=== PATIENT | male | born 1940 | race Caucasian/White ===

== ENCOUNTER 2020-03-22 09:23 | Observation (INO) | payer OTHER ==
[2020-03-17 12:10] LABS: BASOPHILS % 0.5 % (0.0-1.0); EOSINOPHILS # (AUTO) 0.1 (0.0-0.4); EOSINOPHILS % 1.6 % (0.0-6.0); HEMATOCRIT 50.8 % (38.2-49.6); HEMOGLOBIN 16.4 g/dL (14.0-18.0); LYMPHOCYTES # (AUTO) 1.4 (1.0-3.2); LYMPHOCYTES % 23.5 % (18.0-39.1); MEAN CORPUSCULAR HEMOGLOBIN 28.7 pg (28-32); MEAN CORPUSCULAR HGB CONC 32.3 g/dL (31-35); MONOCYTES # (AUTO) 0.6 (0.2-0.8); MONOCYTES % 11.1 % (4.4-11.3); NEUTROPHILS # (AUTO) 3.7 (2.1-6.9); PLATELET COUNT 184 x10e3/uL (140-360); RED BLOOD COUNT 5.71 x10e6/uL (4.3-5.7); RED CELL DISTRIBUTION WIDTH 13.6 % (11.7-14.4)
[2020-03-17 12:30] LABS: ANION GAP 14.4 mmol/L (8-16); BLOOD UREA NITROGEN 12 mg/dL (7-26); BUN/CREATININE RATIO 14 (6-25); CALCIUM 9.6 mg/dL (8.4-10.2); CARBON DIOXIDE 27 mmol/L (22-29); CHLORIDE 104 mmol/L (98-107); CREATININE, SERUM 0.88 mg/dL (0.72-1.25); EST GLOMERULAR FILTRATION RATE > 60 ML/MIN (60-); GLUCOSE 134 mg/dL (74-118); POTASSIUM 4.4 mmol/L (3.5-5.1); SODIUM 141 mmol/L (136-145)
--- NOTE | 2020-03-17 12:59 | Diagnostic Imaging Report ---
Exam: CHEST 2 VIEWS Date: 03/17/2020 12:53 PM INDICATION: ^[id number] ^1214 ^PRE-OP Comparison: None FINDINGS: Lines/Tubes:None Lungs:There are multifocal bilateral upper lobe predominant peripheral ill-defined airspace opacities. Negative for focal lobar consolidation. Pleura:No pleural effusion. No pneumothorax. Heart/Mediastinum:The cardiomediastinal silhouette is normal in size and contour. Trachea projects midline. Bones/Soft Tissues: No acute osseous abnormality. Mild to moderate multilevel degenerative changes of the spine are noted. Upper abdomen: Unremarkable. IMPRESSION: Ill-defined peripheral predominant opacities in the bilateral upper lobes and perihilar regions. Findings are concerning for multifocal infection, possibly atypical versus less likely inhalational disease. Correlate with patient's symptoms. No prior imaging available for comparison. Signed by: Jamison Gutiérrez MD on 03/17/2020 12:56 PM
[~2020-03-22] VITALS: Ht 172.7 cm; Wt 74.4 kg
[~2020-03-22 09:23] MED LIST: ASPIRIN EC81 MG PO; ATACAND16 MG PO; CLOPIDOGREL75 MG PO; CRESTOR20 MG PO; FARXIGA10 MG PO; FENOFIBRATE PO; INVOKANA PO; ISOSORBIDE MONO30 MG PO; ISOSORBIDE PO; LYRICA50 MG; METFORMIN HCL850 MG PO; METOPROLOL SUCC25 MG PO; METROPROLOL PO; NAPROXEN PO; NORCO 7.5-3251 EACH PO; PRILOSEC PO; ROPIVACAINE 246.25 MG, EPINEPHRINE HCL 1:1000 1ML 0.5 MG, CLONIDINE HCL 0.08 MG, KETORO... INJ ONE; ZETIA10 MG PO; [UNRECOGNIZED DRUG - OTHER] PO
[2020-03-22] MEDS ORDERED: CELECOXIB 200 MG CAP ONE (10:09)
[2020-03-22] MEDS ORDERED: GABAPENTIN 300 MG CAP ONE (10:09)
[2020-03-22] MEDS ORDERED: DEXAMETHASONE SOD PHOS 10 MG/1 ML VIAL ONE (10:09)
[2020-03-22] MEDS ORDERED: CEFAZOLIN SOD 1 GM/NS 50ML 100 ML IV ONE (10:10)
[2020-03-22] MEDS ORDERED: TRANEXAMIC ACID 1,000 MG/10 ML ML ONE (10:26)
[2020-03-22] MEDS ORDERED: SODIUM CHLORIDE 0.9% 500ML 500 ML ONE (10:26)
[2020-03-22] MEDS ORDERED: BUPIVACAINE 7.5MG/ML /DEXTROSE 82.5MG/ML 2 ML AMP INJ ONE (10:28)
[2020-03-22] MEDS ORDERED: VANCOMYCIN HCL 1,000 MG ONE (11:07)
[2020-03-22] MEDS ORDERED: DOCUSATE SODIUM 100 MG CAP PO PRN (12:30)
[2020-03-22] MEDS ORDERED: HYDROCODONE/APAP 5MG-325MG TAB PO PRN (12:30)
[2020-03-22] MEDS ORDERED: ACETAMINOPHEN 650 MG SUPP PR PRN (12:30)
[2020-03-22] MEDS ORDERED: ONDANSETRON HCL INJ 2MG/ML 2ML 2 MG/ML VIAL IV PRN (12:30)
[2020-03-22] MEDS ORDERED: DIPHENHYDRAMINE HCL INJ 50 MG/ML VIAL IV PRN (12:30)
[2020-03-22] MEDS ORDERED: KETOROLAC TROMETHAMINE 30 MG/ML VIAL IV PRN (12:30)
--- OUTSIDE RECORDS SUMMARY | 2020-03-22 13:01 | XMS REPORT | Clinical Summary ---
Author Author TRISTAN Desmos [facility] [facility] Address Unknown Phone Unavailable Care Team Providers Care General I Farmworker Name Role Phone Jesus Lee MD PCP Allergies Comments Active Allergy Reactions Severity Noted Date hallucination Morphine 02/25/2013 Medications End Date Status Medication Sig Dispensed Refills Start Date Active clopidogrel (PLAVIX) 75 Take 75 mg by 0 mg tablet mouth daily. Active aspirin 81 MG EC tablet Take 81 mg by 0 mouth daily. Active metoprolol (TOPROL-XL) 25 Take 25 mg by 0 MG 24 hr tablet mouth daily. Active candesartan (ATACAND) 16 Take 16 mg by 0 MG tablet mouth daily. Active isosorbide mononitrate Take 30 mg by 0 (IMDUR) 30 MG 24 hr mouth daily. tablet Active pregabalin (LYRICA) 50 MG Take 100 mg 0 capsule by mouth daily. Active traMADol (ULTRAM-ER) 300 Take 300 mg 0 MG 24 hr tablet by mouth daily. Active dutasteride-tamsulosin Take by 0 (USHA) 0.5-0.4 mg CM24 mouth. Active sitagliptin-metformin Take by 0 (JANUMET XR) 50-1,000 mg mouth. TM24 Active rosuvastatin (CRESTOR) 20 Take 20 mg by 0 MG tablet mouth daily. Active Problems Problem Noted Date Abnormal nuclear cardiac imaging test 02/24/2013 Overview: Mild ischemia anterolateral. Moderate i nferior perfusion defect with reversibility. Positive ETT. Family History Medical History Relation Name Comments Stroke Father Stroke Sister Relation Name Status Comments Father Other Sister Other Social History Date Tobacco Use Types Packs/Day Years Used Former Smoker Comments: Quit since 20 years ago Drinks/Week oz/Week Comments Alcohol Use No Sex Assigned at Date Recorded Not on file Last Filed Vital Signs Not on file Plan of Treatment Health Maintenance Due Date Last Done Comments PNEUMOCOCCAL 65+ YRS (1 2007 of 1 - [id number] PCV13) INFLUENZA VACCINE (#1) 2020 Results Not on fileafter 03/22/2019 Insurance Type Payer Benefit Subscriber ID Effective Phone Address Plan / Dates Group [employer] - [employer]GD [facility] [id number] 2017-P CIGNA HMO resent [id number] Advance Directives For more information, please contact: [phone] Date Inactivated Comments Code Status Date Activated 02/25/2013 9:54 PM All possible means of suppor t including;cardiac massage, mechanical ventilation, and defibrillation will be used to support life. Code ONE 02/25/2013 8:34 AM
--- OUTSIDE RECORDS SUMMARY | 2020-03-22 13:01 | XMS REPORT | Continuity of Care Document ---
Author Author [facility] t Organization [facility] Address [address] [place] [address] Phone Unavailable Care Team Providers Care Technology Assistant Name Role Phone Augusto Lee MD PCP ENOC ANDREWS Unavailable Problems Condition Name Condition Details Condition Category Status Onset Date Resolution Date Last Treatment Date Treating Clinician Comments Source Abnormal nuclear cardiac imaging test Abnormal nuclear cardi ac imaging test Disease Active 2013-02-24 00:00:00 Overv iew: Mild ischemia anterolateral. Moderate inferior perfusion defect with reversibility. Positive ETT. [facility] Allergies, Adverse Reactions, Alerts Allergy Name Allergy Type Status Severity Reaction(s) Onset Date Inacti ve Date Treating Clinician Comments Source Morphine Propensity to adverse reactions Active 2013-02 00:00:[address] [facility] Family History Family Member Diagnosis Comments Start Date Stop Date Source Natural father Stroke [facility] Natural sister Stroke [facility] Social History Social Habit Start Date Stop Date Quantity Comments Source Sex Assigned At [facility] Alcohol intake 2013-02-26 00:00:00 2013-02-26 00:00:00 Current non-drinker of alcohol (finding) [facility] Tobacco Comment 2013-02-24 00:00:00 2013-02-24 00:00:00 Quit since [address] [facility] Smoking Status Start Date Stop Date Source Former smoker 2013-02-26 00:00:00 2013-02-26 00:00:00 [facility] Medications Ordered Medication Name Filled Medication Name Start Date Stop Da te Current Medication? Ordering Clinician Indication Dosage Frequency Signature (SIG) Comments Components Source clopidogrel (PLAVIX) 75 mg tablet 2013-02-25 19:54:05 Yes 75mg QD Take 75 mg by mouth daily. [facility] aspirin 81 MG EC tablet 2013-02-25 19:54:05 Yes 81mg QD Take 81 mg by mouth daily. [facility] metoprolol (TOPROL-XL) 25 MG 24 hr tablet 2013-02-25 19:54:05 Yes 25mg QD Take 25 mg by mouth daily. [facility] candesartan (ATACAND) 16 MG tablet 2013-02-25 19:54:05 Yes 16mg QD Take 16 mg by mouth daily. [facility] isosorbide mononitrate (IMDUR) 30 MG 24 hr tablet 2013-02-25 19:54:05 Yes 30mg QD Take 30 mg by mouth daily. [facility] pregabalin (LYRICA) 50 MG capsule 2013-02-25 19:54:05 Yes 100mg QD Take 100 mg by mouth daily. [facility] traMADol (ULTRAM-ER) 300 MG 24 hr tablet 2013-02-25 19:54:05 Yes 300mg QD Take 300 mg by mouth daily. [facility] dutasteride-tamsulosin (USHA) 0.5-0.4 mg CM24 2013-02-25 19:54: 05 Yes Take by mouth. [facility] sitagliptin-metformin (JANUMET XR) 50-1,000 mg TM24 02-25 19:54:05 Yes Take by mouth. [facility] rosuvastatin (CRESTOR) 20 MG tablet 2013-02-25 19:54:05 Yes 20mg QD Take 20 mg by mouth daily. [facility] Procedures This patient has no known procedures. Plan of Care Planned Activity Planned Date Details Comments Source Future Scheduled Test 2020-02-09 00:00:00 INFLUENZA VACCINE (#1) [code = INFLUENZA VACCINE (#1)] [facility] Future Scheduled Test 2007 00:00:00 PNEUMOCOCCAL 65+ Y RS (1 of 1 - [id number] PCV13) [code = PNEUMOCOCCAL 65+ YRS (1 of 1 - [id number]_[id number] PCV13)] [facility] Results Test Description Test Time Test Comments Results Result Comments Source CHEST 2 VIEWS 2020-03-17 12:53:00 [place] [address] Patient Name: ROSE MARIE BUENO MR #: [id number] : 1940 Age/Sex: 79/M Req #: [id number] Adm Physician: Ordered by: ENOC ANDREWS MD Report #: [id number] Location: OR Room/Bed: Procedure: [id number] DX/CHEST 2 VIEWS Exam Date: 03/17/20 Exam Time: 1214 REPORT STATUS: Signed Exam: CHEST 2 VIEWS Date: 03/17/2020 12:53 PM INDICATION: [id number] 1214 PRE-OP Comparison: None FINDINGS: Lines/Tubes:None Lungs:There are multifocal bilateral upper lobe predominant peripheral ill-defined airspace opacities. Negative for focal lobar consolidation. Pleura:No pleural effusion. No pneumothorax. Heart/Mediastinum:The cardiomediastinal silhouette is normal in size and contour. Trachea projects midline. Bones/Soft Tissues: No acute osseous abnormality. Mild to moderate multilevel degenerative changes of the spine are noted. Upper abdomen: Unremarkable. IMPRESSION: Ill-defined peripheral predominant opacities in the bilateral upper lobes and perihilar regions. Findings are concerning for multifocal infection, possibly atypical versus less likely inhalational disease. Correlate with patient's symptoms. No prior imaging available for comparison. Signed by: Naomi Gutiérrez MD on 03/17/2020 12:56 PM Dictated By: NAOMI GUTIÉRREZ MD 1256 Transcribed By: ALFRED on 03/17/20 1256 COPY TO: ENOC ANDREWS MD RAD, CHEST, 2 VIEWS 2017-07-22 11:38:00 Reason for Exam:->[id number] 0 FINAL REPORT TECHNIQUE: Frontal and lateral views of the chest. INDICATION: 77-year-old man with exposure to asbestos. COMPARISON: Chest CT 01/04/2014. FINDINGS: LINES/TUBES: None. LUNGS/PLEURA: No pleural effusion or pneumothorax. Bilateral calcified pleural plaques, which may mask pathology in the lungs. No consolidations or pulmonary edema. HEART AND MEDIASTINUM: The cardiomediastinal silhouette is within normal limits. Atherosclerotic calcifications in the thoracic aorta. SOFT TISSUES AND BONES: Degenerative changes of the visualized spine. Soft tissues are unremarkable. IMPRESSION:Bilateral calcified pleural plaques, which may mask pathology in the lungs. Otherwise, no definite acute cardiopulmonary abnormalities. RECOMMENDATION:Chest CT may be obtained for further evaluation. Signed: Brittni Murillo MDReport Verified Date/Time: 07/22/2017 11:38:51 Reading Location: [address] Radiology Reading Room
--- NOTE | 2020-03-22 13:38 | Diagnostic Imaging Report ---
Pelvis, one view INDICATION: ^POST OP ^[id number] ^1258 ^IN PACU Comparison: None available. Discussion: Postoperative changes from left hip arthroplasty are noted with overlying subcutaneous emphysema. Anatomic alignment of the left hip prosthesis is noted. Right hip joint space is well maintained. Pubic symphysis is not widened. IMPRESSION: Anatomic postsurgical alignment of the left hip prosthesis. Signed by: Jamison Gutiérrez MD on 03/22/2020 1:35 PM
--- NOTE | 2020-03-22 14:04 | Operative Report ---
DATE OF PROCEDURE: 03/22/2020 SURGEON: Salomón Argueta MD INVESTMENT BROKER: Danielito Mcdaniel PA-C. PREOPERATIVE DIAGNOSIS: Osteoarthritis, left hip. POSTOPERATIVE DIAGNOSIS: Osteoarthritis, left hip. PROCEDURE: Left total hip arthroplasty. INDICATIONS: The patient is a 79-year-old gentleman with end-stage arthritic changes of his left hip. He also has some lumbar spine issues. The findings and options have been discussed. He would like to proceed with a left total hip replacement. The risks and benefits have been discussed. All of his questions have been answered. He states he understands and wishes to proceed. DESCRIPTION OF PROCEDURE: The patient was brought to the operating room and given a spinal anesthetic. He received prophylactic antibiotics and tranexamic acid in the holding area. He was positioned in the right lateral decubitus position. His left hip was prepped and draped in a sterile manner. A preoperative time-out was performed. A posterior approach was made to the left hip. Care was taken to avoid injury to the sciatic nerve. Hemostasis was obtained with electrocautery. A self-retaining Charnley retractor was placed. The posterior capsule was carefully exposed. Further hemostasis was obtained with electrocautery. A portion of the short external rotators and the posterior capsule were released. The hip was dislocated and an oscillating saw was used to resect the femoral head. Extensive loss of articular cartilage in the weightbearing surface of the femoral head was noted. Acetabular retractors were carefully placed. A very pronounced hypertrophic labrum was noted and excised. There was some evidence of dysplastic coverage of the hip joint. The true floor of the acetabulum was established with a 46 mm reamer. The socket was then reamed up to 55 mm. The hip was thoroughly irrigated with a shower tip pulsatile lavage. Bleeding hemispherical cancellous bone was noted. A All/Biomet 56 mm outer diameter OsseoTi socket was then impacted into place. Fixation was augmented with a single 20 mm cancellous screw. Excellent bone purchase was encountered. A highly cross-linked polyethylene liner with a 36 mm inner diameter was then seated into place. Care was taken to make sure that there was no evidence of soft tissue interposition. The socket was then packed with a moistly soaked lap sponge. Attention was directed towards the proximal femur. A box cutting osteotome and taper pin reamer were used to establish entry to the femoral canal. The All/Biomet taper lock broaches were then impacted into place. A size 12 stem was necessary for good rotational stability and buddhism of limb length. A trial reduction was performed with a standard 36 mm head. The hip was put through a full arc of motion and noted to have a good stability and soft tissue tension. The trial implants were removed. The hip was further irrigated with a shower tip pulsatile lavage. A 100 mL premixed pericapsular STAN injection was placed into the surrounding soft tissue. The Taperloc stem was then impacted into place. A standard 36 mm ceramic head plus zero neck was seated onto a clean and dry stem. A final reduction was performed. The posterior capsule was quite hypertrophic and was easily repaired with #2 Ethibond. The piriformis was reattached with #2 Ethibond. The wound was further irrigated with a pulsatile lavage. A 500 mg of vancomycin powder was sprinkled into the deep wound. The fascia was closed with #2 Ethibond. The skin was closed with subcuticular Vicryl and philly. A sterile Aquacel bandage was applied. The patient was then transported to the recovery room in stable condition. Estimated blood loss was 50 mL. At the end of the procedure, all needle and sponge counts were correct. Salomón Argueta MD DR/MIRNA /[id number]
[2020-03-22] MEDS ORDERED: FENTANYL CITRATE/PF 100MCG/2 ML INJ ONE (14:06)
[2020-03-22] MEDS ORDERED: MIDAZOLAM HCL 2 MG/2 ML VIAL ONE (14:06)
--- NOTE | 2020-03-22 15:11 | NUR ---
RECEIVED PATIENT FROM PACU. PATIENT A/O X3, EVEN RESPIRATIONS ON RA. LUNG SOUNDS CLEAR. LEFT HIP DRESSING C/D/I. RIGHT FA IV INTACT/PATENT. FOOT PUMPS BILATERALLY. JAQUELIN HOSE TO LEFT LEG. PATIENT DENIES PAIN AT THIS TIME. ABDUCTOR PILLOW IN PLACE. BED LOW, WHEELS LOCKED, SIDE RAILS X2. CALL LIGHT IN REACH WILL CONTINUE TO MONITOR PATIENT.
[2020-03-22 16:00] VITALS: BP 119/66
[2020-03-22] MEDS ORDERED: ACETAMINOPHEN 1000 MG/100 ML IV PRN (16:00)
[2020-03-22 16:07] VITALS: BP 119/66
[2020-03-22] MEDS: CELECOXIB 100 MG CAP PO SCH (16:37)
[2020-03-22] MEDS: ASPIRIN 325 MG TAB PO SCH (16:37)
[2020-03-22] MEDS: SODIUM CHLORIDE 0.9% 1000ML 1,000 ML IV SCH ×2 (16:37→22:30)
[2020-03-22] MEDS ORDERED: DEXTROSE 50% SYRINGE 50 ML IV PRN (16:45)
[2020-03-22] MEDS ORDERED: PROPOFOL IV EMULSION 10 MG/ML 20 ML VIAL ONE (17:45)
[2020-03-22] MEDS ORDERED: SEVOFLURANE INHAL SOLN 250 ML PEN BTL ONE (17:45)
[2020-03-22] MEDS ORDERED: LIDOCAINE HCL 2% LOCAL INJ 5 ML SDV VIAL INJ ONE (17:45)
[2020-03-22] MEDS ORDERED: ONDANSETRON HCL INJ 2MG/ML 2ML 2 MG/ML VIAL ONE (17:45)
[2020-03-22 17:57] VITALS: BP 119/66
[2020-03-22] MEDS: METFORMIN HCL 850 MG TAB PO SCH (18:19)
--- NOTE | 2020-03-22 18:25 | Consultation ---
DATE OF CONSULTATION: 03/22/2020 REASON FOR CONSULTATION: Medical management. HISTORY OF PRESENT ILLNESS: This is a 79-year-old white man, who was initially admitted to [facility] with diagnosis of advanced left hip osteoarthritis. Today, the patient underwent successful left total hip arthroplasty was performed by Dr. Salomón Argueta. The patient states pain is well controlled. The patient voices no complaints this time. The patient states he has already ambulated a few steps with nursing staff. REVIEW OF SYSTEMS: GENERAL: Weight is stable. No fever or chills. HEENT: No headaches. No vision changes. CARDIOVASCULAR/RESPIRATORY: No chest pain. No shortness of breath or cough. GI: No nausea, vomiting, or constipation. : No dysuria or hematuria, incontinence. NEUROMUSCULAR: No limb weakness, numbness. The patient states pain in his left hip is well controlled. PAST MEDICAL HISTORY: 1. Coronary artery disease (history of five coronary stents in place with the last one in 2013). 2. Hypertensive heart disease. 3. Type 2 diabetes mellitus. 4. Hyperlipidemia. 5. Pulmonary asbestosis. 6. Previous tobacco smoker, quit in 1979. PAST SURGICAL HISTORY: 1. L4-L5 decompressive laminectomy without fusion in 2013. 2.Coronary stent placement, five stents placed, last one 2013. FAMILY HISTORY: Mother and father had history of hip replacements. ALLERGIES: MORPHINE. HOME MEDICATIONS: 1. Aspirin 81 mg daily. 2. Clopidogrel 75 mg daily. 3. Farxiga 10 mg daily. 4. Ezetimibe 10 mg at bedtime. 5. Isosorbide mononitrate 30 mg daily. 6. Metformin 850 mg twice a day. 7. Metoprolol succinate 25 mg daily. 8. Rosuvastatin 20 mg at bedtime. SOCIAL HISTORY: This man is and lives with his . 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 The patient was a tobacco smoker, quit in 1979. He does drink alcohol socially in the form of wine. PHYSICAL EXAMINATION: GENERAL: He is awake, alert and fully oriented, in no obvious distress very pleasant. VITAL SIGNS: Height 5 feet 8 inches, weight 164 pounds, BMI is 24, blood pressure is 114/68, pulse 68, respiratory rate 16, temperature 97.4, oxygen saturation 96% on room air. INTEGUMENT: Skin is warm and dry. No pallor, jaundice, diaphoresis. HEENT: Anterior sclerae. Moist mucous membranes. NECK: Supple. CARDIOVASCULAR: Distant. Regular rate and rhythm. LUNGS: No rales. No rhonchi. No wheezes. ABDOMEN: Benign. EXTREMITIES: The patient's left hip surgical incisions are clean, dry, and intact, is currently dressed. No other deformity. NEUROLOGIC: Intact. DIAGNOSES: 1. Status post left total hip arthroplasty. 2. Coronary artery disease ([address] with last coronary stent placed in 2013). 3. Hypertensive heart disease. 4. Type 2 diabetes mellitus. PLAN: 1. Hold clopidogrel and low dose aspirin while patient is receiving high-dose aspirin twice a day for deep venous thrombosis prophylaxis. 2. Blood glucose monitor and control. 3. Restart home medications except clopidogrel and low dose aspirin. 4. Stop intravenous fluids. 5. Mobilize with therapy. 6. Pain control. 7. Encourage incentive spirometry uses to prevent atelectasis. I would like to thank, Dr. Salomón Argueta, for this generous consult. I spent 40 minutes in the care of this patient. MD CAITLIN Clay/MIRNA /[id number] MTDD
[2020-03-22 19:58] VITALS: BP 119/66
[2020-03-22 20:00] VITALS: BP 120/66
[2020-03-22] MEDS: CEFAZOLIN SOD 1 GM/NS 50ML 50 ML IV SCH (20:00)
--- NOTE | 2020-03-22 20:00 | NUR ---
RECEIVED PATIENT A/O X3, RESPIRATIONS ARE EVEN AND UNLABORED. LUNG SOUNDS CLEAR. PT HAD LEFT HIP SURGERY TODAY.LEFT HIP WITH DRESSING. RIGHT FA IV INTACT/PATENT. FOOT PUMPS BILATERALLY. JAQUELIN HOSE TO LEFT LEG. PATIENT DENIES PAIN AT THIS TIME. ABDUCTOR PILLOW IN PLACE. DENIES PAIN AT THIS TIME CALL LIGHT IN REACH WILL CONTINUE TO MONITOR PATIENT.
[2020-03-22] MEDS ORDERED: ZOLPIDEM TARTRATE 5 MG TAB PO PRN (21:00)
[2020-03-22] MEDS: INSULIN LISPRO 100 UNIT/1 ML 3ML VIAL SQ SCH (21:00)
[2020-03-22] MEDS ORDERED: EZETIMIBE 10 MG TAB PO SCH (21:00)
[2020-03-22] MEDS: HYDROCODONE/APAP 7.5MG-325MG 1 EA TAB PO PRN (23:27)
[2020-03-23] VITALS: BP 108/72
[2020-03-23] MEDS: HYDROCODONE/APAP 7.5MG-325MG 1 EA TAB PO PRN ×2 (03:37→08:42)
[2020-03-23 04:00] VITALS: BP 112/71
[2020-03-23] MEDS: CEFAZOLIN SOD 1 GM/NS 50ML 50 ML IV SCH ×2 (04:00→12:00)
--- NOTE | 2020-03-23 05:10 | NUR ---
IN AND GIVEN ORDERED PAIN MEDICATION ,CALL LIGHT WITH IN REACH CONTINUE TO MONITOR Addendum: 03/23/20 at 0512 by Remberto Iraheta RN WRONG
--- NOTE | 2020-03-23 05:12 | NUR ---
PT C/O PAIN AND GIVEN ORDERED PAIN MEDICATION ,CALL LIGHT WITH IN REACH CONTINUE TO MONITOR
[2020-03-23 05:54] LABS: BASOPHILS % 0.2 % (0.0-1.0); EOSINOPHILS % 0.1 % (0.0-6.0); HEMATOCRIT 45.3 % (38.2-49.6); HEMOGLOBIN 14.6 g/dL (14.0-18.0); LYMPHOCYTES # (AUTO) 1.1 (1.0-3.2); LYMPHOCYTES % 10.9 % (18.0-39.1); MEAN CORPUSCULAR HEMOGLOBIN 28.8 pg (28-32); MEAN CORPUSCULAR HGB CONC 32.2 g/dL (31-35); MEAN CORPUSCULAR VOLUME 89.3 fL (81-99); MONOCYTES # (AUTO) 1.1 (0.2-0.8); MONOCYTES % 10.8 % (4.4-11.3); NEUTROPHILS % 77.5 % (38.7-80.0); PLATELET COUNT 169 x10e3/uL (140-360); RED BLOOD COUNT 5.07 x10e6/uL (4.3-5.7)
[2020-03-23 06:21] LABS: ANION GAP 13.3 mmol/L (8-16); BLOOD UREA NITROGEN 19 mg/dL (7-26); BUN/CREATININE RATIO 23 (6-25); CALCIUM 8.9 mg/dL (8.4-10.2); CARBON DIOXIDE 25 mmol/L (22-29); CHLORIDE 108 mmol/L (98-107); CREATININE, SERUM 0.84 mg/dL (0.72-1.25); EST GLOMERULAR FILTRATION RATE > 60 ML/MIN (60-); GLUCOSE 138 mg/dL (74-118); POTASSIUM 4.3 mmol/L (3.5-5.1); SODIUM 142 mmol/L (136-145)
--- NOTE | 2020-03-23 07:19 | NUR ---
BEDSIDE REPORT GIVEN TO THE ONCOMING NURSE
--- NOTE | 2020-03-23 07:44 | NUR ---
DR MOCTEZUMA OFFICE PREARRANGED FOLLOWING DISCHARGE PLAN OF:HOME [address] [facility], [address] HOME HEALTH WITH [facility] [employer] CONFIRMED WITH [employer] [phone] AWA 3 IN ONE COMMODE AND ROLLING WALKER WITH WHEELS. PROVIDED BY [employer] [phone]
--- NOTE | 2020-03-23 07:53 | Progress Note ---
DATE: 03/23/2020 CHIEF COMPLAINT/HISTORY OF PRESENT ILLNESS: This is a 79-year-old white man, whose primary admitting diagnosis was advanced left hip osteoarthritis that was causing debilitating pain. During this hospitalization, the patient underwent successful left total hip arthroplasty. The patient did ambulate with staff yesterday. The patient, last night, he did have pain that was not alleviated with hydrocodone in the form of [place]. Blood work today revealed hemoglobin of 14.6 g/dL. White blood cell count was 10,300 with 77% segmenters. The patient's BUN and creatinine are 19 and 0.84 respectively. Potassium 4.3. The patient states he did use the incentive spirometer at least five times overnight. REVIEW OF SYSTEMS: As per HPI. PHYSICAL EXAMINATION: GENERAL: He is awake. He is alert. He is fully oriented. He is in no distress, very pleasant and cooperative. VITAL SIGNS: Height 5 feet and 8 inches, weight 164 pounds, BMI 24. Blood pressure is 112/70, pulse 80, respiratory rate 22, temperature 97.4, and oxygen saturation 99% on room air. INTEGUMENT: Skin is warm and dry. No pallor, jaundice, or diaphoresis. HEENT: Anterior sclerae. Moist mucous membranes. NECK: Supple. CARDIOVASCULAR: Distant heart sounds. Regular rate and rhythm with a faint systolic ejection murmur. LUNGS: No rales. No rhonchi. No wheezes. ABDOMEN: Benign. EXTREMITIES: No edema or deformity. The patient's left hip surgical incision wounds currently dressed. NEUROLOGIC: Intact. No gross deficits appreciated. DIAGNOSES: 1. Status post left total hip arthroplasty. 2. Hypertensive heart disease. 3. Coronary artery disease. PLAN: 1. Pain control. 2. Mobilize therapy. 3. Resume home medications except clopidogrel and low-dose aspirin since he is currently receiving high-dose aspirin twice a day for deep venous thrombosis prophylaxis as prescribed by his orthopedic surgeon. 4. Encourage continued incentive spirometer usage to prevent atelectasis. 5. Discharge planning as per Orthopedic Surgery. I spent 25 minutes in the care of this patient. MD CAITLIN Clay/MIRNA /[id number] MTDD
[2020-03-23 07:56] VITALS: BP 119/72
[2020-03-23] MEDS: SODIUM CHLORIDE 0.9% 1000ML 1,000 ML IV SCH (08:30)
[2020-03-23 08:32] VITALS: BP 119/72
[2020-03-23] MEDS: ASPIRIN 325 MG TAB PO SCH (08:38)
[2020-03-23] MEDS: METFORMIN HCL 850 MG TAB PO SCH (08:38)
[2020-03-23] MEDS: CELECOXIB 100 MG CAP PO SCH (08:38)
[2020-03-23] MEDS ORDERED: (Dapagliflozin Propanediol (Farxiga) 10 MG) PO SCH (09:00)
[2020-03-23] MEDS ORDERED: CRESTOR 10MG PO SCH (09:00)
[2020-03-23] MEDS ORDERED: NON-FORMULARY MEDICATION (Rosuvastatin Calcium (Crestor) 40 MG) PO SCH (09:00)
[2020-03-23] MEDS ORDERED: METOPROLOL SUCCINATE 25 MG TAB XL PO SCH ×2 (09:00)
[2020-03-23] MEDS ORDERED: ISOSORBIDE MONONITRATE 30 MG TAB CR PO SCH (09:00)
[2020-03-23] MEDS: INSULIN LISPRO 100 UNIT/1 ML 3ML VIAL SQ SCH ×2 (09:31→12:00)
[2020-03-23 11:54] VITALS: BP 97/62
[2020-03-23] MEDS ORDERED: ONDANSETRON HCL 4 MG ORAL DISINTEGRATING TAB PO PRN (12:15)
--- NOTE | 2020-03-23 13:48 | NUR ---
Pt discharged home at this time. Pt is aox4 and able to verbalize needs. Pt verbalized understanding of all discharge instructions and follow up appointments. All DME has been delivered and is in room. Dressing to left hip is dry and intact. 0 s/s of acute distress noted at time of discharge.
[2020-03-23] MEDS ORDERED: CELECOXIB 200 MG CAP PO SCH (17:00)
== END 2020-03-23 13:48 | disposition home health service (06) ==
LOC: OR 09:23 → PACU V 12:29 → MED/SURG 15:11
PROVIDERS: ADMIT Specialist; ATTEND Specialist
DX: M16.12 Unilateral primary osteoarthritis, left hip (principal); E11.9 Type 2 diabetes mellitus without complications; I25.10 Atherosclerotic heart disease of native coronary artery without angina pectoris; I11.9 Hypertensive heart disease without heart failure; Z95.5 Presence of coronary angioplasty implant and graft; Z79.84 Long term (current) use of oral hypoglycemic drugs; Z88.5 Allergy status to narcotic agent; E78.5 Hyperlipidemia, unspecified; J61 Pneumoconiosis due to asbestos and other mineral fibers; Z87.891 Personal history of nicotine dependence; Z01.810 Encounter for preprocedural cardiovascular examination; Z01.812 Encounter for preprocedural laboratory examination; Z01.818 Encounter for other preprocedural examination
CPT/HCPCS: 27130; 36415 ×3; 71046; 72170; 80048 ×2; 82948 ×2; 85025 ×2; 86850; 86900; 86920; 93005; 97116; 97139 ×2; 97161; 97530 ×2; G0378 ×2; J0690 ×2; J1100; J1885; J2001; J2250; J2405; J2704; J3010; J3370; J7030; J7040; U0002; J0171; J2795